=== PATIENT | female | born 1965 | race Caucasian/White ===

== ENCOUNTER → 2016-10-21 | Outpatient (REF) | payer OTHER ==
[2016-10-21 12:54] LABS: BASO % 0.6 % (0.0-1.0); EOS # 0.2 K/mm3 (0.0-0.50); EOS % 3.3 % (0.0-3.0); LARGE UNSTAINED CELL # 0.1 K/mm3 (0.0-0.4); LARGE UNSTAINED CELL % 2.6 % (0.0-4.0); LYMPH # 2.1 K/mm3 (1.5-4.5); LYMPH % 43.3 % (24.0-44.0); MEAN CORPUSCULAR HEMOGLOBIN 30.2 pg (27.0-33.0); MEAN CORPUSCULAR HGB CONC 32.6 g/dl (32.0-36.5); MEAN CORPUSCULAR VOLUME 92.7 fl (80.0-96.0); MONO # 0.2 K/mm3 (0.0-0.8); MONO % 5.2 % (0.0-5.0); NEUTROPHILS # 2.1 K/mm3 (1.8-7.7); PLATELET COUNT, AUTOMATED 259 k/mm3 (150-450); RED CELL DISTRIBUTION WIDTH 12.8 % (11.5-14.5); WHITE BLOOD COUNT 4.7 K/mm3 (4.0-10.0)
[2016-10-21 13:40] LABS: ALBUMIN 4.1 GM/DL (3.2-5.2); ALBUMIN/GLOBULIN RATIO 1.41 (1.00-1.93); ALKALINE PHOSPHATASE 67 U/L (45-117); ALT/SGPT 24 U/L (12-78); ANION GAP 6 MEQ/L (8-16); AST/SGOT 18 U/L (15-37); BILIRUBIN,TOTAL 0.8 MG/DL (0.2-1.0); BLOOD UREA NITROGEN 24 MG/DL (7-18); CALCIUM LEVEL 9.1 MG/DL (8.5-10.1); CARBON DIOXIDE LEVEL 29 MEQ/L (21-32); CHLORIDE LEVEL 107 MEQ/L (98-107); CHOLESTEROL LEVEL 214 MG/DL (<200); CREATININE FOR GFR 0.67 MG/DL (0.55-1.02); GLOMERULAR FILTRATION RATE > 60.0 (>51); GLUCOSE, FASTING 85 MG/DL (70-105); POTASSIUM SERUM 4.9 MEQ/L (3.5-5.1); SODIUM LEVEL 142 MEQ/L (136-145); TRIGLYCERIDES LEVEL 87 MG/DL (<150)
== END ==
LOC: M LABDRWAD 12:18
PROVIDERS: ATTEND Nurse Practitioner Family
DX: Z13.220 Encounter for screening for lipoid disorders (principal); K21.9 Gastro-esophageal reflux disease without esophagitis

== ENCOUNTER 2017-08-22 08:06 | Day surgery (SDC) | payer OTHER ==
[2017-08-22] MEDS ORDERED: LIDOCAINE 2% INJ 100 MG/5 ML SDV (FOR ANES.) As Ordered (08:59)
[2017-08-22] MEDS ORDERED: PROPOFOL 200 MG/20 ML VIAL As Ordered ×2 (08:59→09:40)
== END 2017-08-22 10:28 | disposition home or self-care (01) ==
LOC: M OPP 08:06
DX: Z12.11 Encounter for screening for malignant neoplasm of colon (principal); Z80.0 Family history of malignant neoplasm of digestive organs; K64.8 Other hemorrhoids; K21.9 Gastro-esophageal reflux disease without esophagitis; R12 Heartburn; F41.9 Anxiety disorder, unspecified; M25.50 Pain in unspecified joint; Z88.2 Allergy status to sulfonamides; Z79.899 Other long term (current) drug therapy; Z80.8 Family history of malignant neoplasm of other organs or systems
CPT/HCPCS: 45378

== ENCOUNTER → 2017-09-29 | Outpatient (REF) | payer OTHER ==
[2017-09-29 13:31] LABS: CREATININE FOR GFR 0.75 MG/DL (0.55-1.30); GLOMERULAR FILTRATION RATE > 60.0 (>51)
[2017-09-29 13:31] LABS: BLOOD UREA NITROGEN 16 MG/DL (7-18)
== END ==
LOC: M LABDRWAD 12:06
DX: Z79.1 Long term (current) use of non-steroidal anti-inflammatories (NSAID) (principal)

== ENCOUNTER → 2018-01-30 | Outpatient (REF) | payer OTHER | LOC: M LAB REF 12:03 | DX: J02.9 Acute pharyngitis, unspecified (principal) ==

== ENCOUNTER → 2018-02-12 | Outpatient (REF) | payer OTHER ==
[2018-02-12 19:52] LABS: FREE THYROXINE INDEX 2.3 % (1.3-4.8); T UPTAKE 33 % (30-39); THYROXINE (T4) 7.1 UG/DL (4.5-12.0)
== END ==
LOC: M LABDRWAD 19:20
DX: H16.222 Keratoconjunctivitis sicca, not specified as Sjogren's, left eye (principal); H16.223 Keratoconjunctivitis sicca, not specified as Sjogren's, bilateral

== ENCOUNTER → 2019-02-08 | Outpatient (CLI) | payer OTHER ==
[~2019-02-08] MED LIST: CLAR10CA3 PO; NAPR-855 PO; NAPROXYN PO; PANT40TA3 PO
--- NOTE | 2019-02-08 16:36 | REP ---
MRI RIGHT SHOULDER: TECHNIQUE: Axial T2 fat sat, gradient echo, sagittal oblique T2 fat sat, coronal oblique T1, T2 fat sat. There is a high grade full thickness tear of the anterior supraspinatus tendon with a gap in the tendon approximately 1.5 cm, other rotator cuff tendons are intact. There are mild hypertrophic degenerative changes of the acromioclavicular joint with mild downward sloping of the acromion which is type 2. Biceps tendon is within the bicipital groove with no tenosynovitis. There is no Hill Sach's deformity. Deltoid muscle demonstrates no abnormal signal. I do not see a discrete labral tear. There does appear to be mild fraying of the biceps labral complex and some minor scattered fraying of the labrum. There is very mild subchondral marrow edema in the superior lateral humeral head. Mild joint effusion is seen with fluid extending into the subacromial, subdeltoid bursae. IMPRESSION :Full thickness high grade tear anterior supraspinatus tendon with intact posterior fibers. Gap in the tendon is 1.6 cm. Mild hypertrophic degenerative changes of the acromioclavicular joint with mild downward sloping of a type 2 acromion. Very mild fraying of the biceps labral complex and labrum. Mild joint fluid which extends into the subacromial, subdeltoid bursae. Electronically Signed by Jonatan Vee MD 02/11/2019 11:20 A
== END ==
LOC: M RAD 10:00
PROVIDERS: ATTEND Orthopaedic Surgery Sports Medicine
DX: S46.011A Strain of muscle(s) and tendon(s) of the rotator cuff of right shoulder, initial encounter (principal); M19.011 Primary osteoarthritis, right shoulder; X58.XXXA Exposure to other specified factors, initial encounter; Y92.89 Other specified places as the place of occurrence of the external cause

== ENCOUNTER → 2020-10-12 | Outpatient (REF) | payer OTHER ==
[~2020-10-12] MED LIST changes: +PANT40TA29 PO; -PANT40TA3 PO
== END ==
LOC: M SFHCADAM 15:15
PROVIDERS: ATTEND Physician Assistant
DX: N30.00 Acute cystitis without hematuria (principal)

== ENCOUNTER → 2021-06-28 | Outpatient (REF) | LOC: M LABSMTC 11:56 | PROVIDERS: ATTEND Pediatrics | DX: Z20.822 Contact with and (suspected) exposure to COVID-19 (principal) ==

== ENCOUNTER → 2024-09-11 | Outpatient (REF) | payer OTHER | LOC: M SFHCPLAZ 16:46 | PROVIDERS: ATTEND Physician Assistant Medical | DX: R30.0 Dysuria (principal) ==

== ENCOUNTER → 2025-02-21 | Outpatient (CLI) | payer OTHER | LOC: M SOG 06:52 | PROVIDERS: ATTEND Orthopaedic Surgery | DX: M25.511 Pain in right shoulder (principal); M25.512 Pain in left shoulder ==